=== PATIENT | male | born 1990 | race Caucasian/White ===

== ENCOUNTER 2016-09-29 07:48 | Emergency (ER) | payer MEDICARE, MEDICAID ==
[2016-09-29 07:49] VITALS: BMI 24.8
[2016-09-29 08:00] VITALS: TEMP 97.5
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
[2016-09-29] MEDS ORDERED: ONDANSETRON HCL 4 MG/2 ML VIAL IV ONE (08:01)
[2016-09-29] MEDS ORDERED: HYDROmorphone 1 MG INJECTION IV ONE (08:01)
--- NOTE | 2016-09-29 08:46 | DIRPT ---
CLINICAL DATA: Stretching this morning and felt a shoulder popped out. EXAM: RIGHT SHOULDER - 2+ VIEW COMPARISON: None. FINDINGS: No acute fracture. Anterior shoulder dislocation. Normal acromioclavicular joint. Mild osteoarthritis of the glenohumeral joint. IMPRESSION: 1. Anterior shoulder dislocation. Electronically Signed By: Jenise Chou On: 09/29/2016 08:44
[2016-09-29] MEDS: PROPOFOL 200 MG/20 ML VIAL IV ONE ×4 (09:21→09:39)
--- NOTE | 2016-09-29 10:17 | DIRPT ---
CLINICAL DATA: Post reduction radiographs EXAM: PORTABLE RIGHT SHOULDER - 2+ VIEW COMPARISON: Earlier same day FINDINGS: Humeral head is relocated in the bony glenoid. No fracture visible on these limited views. IMPRESSION: Relocated. Electronically Signed By: Ezekiel Hua M.D. On: 09/29/2016 10:14
[2016-09-29 10:35] VITALS: BP 130/79; PULSE 88
== END 2016-09-29 11:07 | disposition home or self-care (01) ==
LOC: ED 07:48
DX: S43.014A Anterior dislocation of right humerus, initial encounter (principal); X58.XXXA Exposure to other specified factors, initial encounter
CPT/HCPCS: 23650; 73030; 96374; 96375; 99152; 99282; J1170; J2405; J3490

== ENCOUNTER 2016-10-11 19:41 | Emergency (ER) | payer MEDICARE, MEDICAID ==
[2016-10-11 19:53] VITALS: TEMP 98.1; BMI 25.7
--- NOTE | 2016-10-11 20:14 | DIRPT ---
CLINICAL DATA: 25-year-old male with right shoulder pain and deformity. Possible dislocation. EXAM: RIGHT SHOULDER - 2+ VIEW COMPARISON: 09/29/2016. FINDINGS: Anterior subcoracoid dislocation again noted. No acute displaced fracture. IMPRESSION: 1. Anterior shoulder dislocation. Electronically Signed By: Anatoly Gamez M.D. On: 10/11/2016 20:12
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
[2016-10-11] MEDS ORDERED: SODIUM CHLORIDE 0.9% 10 ML FLUSH FLUSH PRN (22:09)
[2016-10-11] MEDS ORDERED: PROPOFOL 200 MG/20 ML VIAL IV ONE ×2 (22:20→23:21)
[2016-10-12 00:21] VITALS: BP 136/78; PULSE 77
--- NOTE | 2016-10-12 00:25 | DIRPT ---
CLINICAL DATA: 25-year-old male status post reduction of right shoulder dislocation. EXAM: PORTABLE RIGHT SHOULDER - 2+ VIEW COMPARISON: Radiograph dated 10/11/2006 and 09/29/2006 FINDINGS: There has been interval reduction of the previously seen right shoulder dislocation. The humeral head appears in anatomic alignment with the glenoid fossa. There is stable appearing cortical irregularity of the right humeral head similar to the study dated 09/29/2016 and likely chronic. No definite acute fracture identified. IMPRESSION: Interval reduction of the previously seen right shoulder dislocation. Electronically Signed By: Dany Estrada M.D. On: 10/12/2016 00:23
== END 2016-10-12 00:21 | disposition home or self-care (01) ==
LOC: ED 19:41
DX: R56.9 Unspecified convulsions (principal); S43.004A Unspecified dislocation of right shoulder joint, initial encounter; X58.XXXA Exposure to other specified factors, initial encounter; Y93.84 Activity, sleeping
CPT/HCPCS: 23650; 73030; 99152; 99282; J3490